=== PATIENT | female | born 1965 ===

== ENCOUNTER 2019-07-02 09:29 | Outpatient (CLI) | payer OTHER, SELFPAY ==
--- NOTE | ~2019-07-02 | MM_ITS ---
EXAMINATION: MM screening [place] BI w sejal HISTORY: Screening mammogram TECHNIQUE: Craniocaudal and mediolateral oblique 3-D tomosynthesis images were obtained and synthetic 2-D images were generated. CAD analysis was submitted and interpreted. COMPARISON: 03/31/2018, 11/15/2016, 11/18/2015 bilateral digital screening mammogram examinations BREAST PARENCHYMAL COMPOSITION: The breasts are heterogeneously dense, which may obscure small masses . FINDINGS: There is no evidence of suspicious mass, calcification, or architectural distortion to sugg est malignancy in either breast. There has been no suspicious interval change. IMPRESSION: 1. No mammographic evidence of malignancy. 2. Recommend routine screening mammography in one year. BI-RADS Category 1: Negative Reviewed, dictated and finalized at location A. TAL CONTENT MARKETING MANAGER
== END 2019-07-02 09:30 | disposition home or self-care (01) ==
LOC: ANHIMG 09:33
PROVIDERS: Visit Provider Student in an Organized Health Care Education/Training Program
DX: Z12.31 Encounter for screening mammogram for malignant neoplasm of breast (principal)
CPT/HCPCS: 77063; 77067

== ENCOUNTER 2019-07-23 02:46 | Day surgery (SDC) | payer OTHER, SELFPAY ==
[2019-07-19 13:18] VITALS: BMI 20.2
[2019-07-23 07:16] VITALS: BP 101/57; PULSE 86; RESP 18; TEMP 36.4; O2SAT 100
[2019-07-23] MEDS: LACTATED RINGERS 1,000 ML 150 ML IV CONT (07:22)
--- NOTE | 2019-07-23 08:44 | P.PNAN_ITS ---
Anes - Initial Pre Proc Eval Procedure: Operation Date: 07/23/19 08:30 Proposed Procedures p Screening Colonoscopy - Colin Lozoya MD Date/Time: 07/23/19 08:44 Surgeon: Colin Lozoya MD Pre Op Diagnosis: neoplasm screening Patient Data Age: 54 Gender: F Height: 5 ft 3 in Weight: 54.3 kg Last Vital Signs Temp 36.4 C L 07/23/19 07:16 Pulse 86 07/23/19 07:16 Resp 18 07/23/19 07:16 BP 101/57 L 07/23/19 07:16 Pulse Ox 100 07/23/19 07:16 Allergies Allergy/AdvReac Type Severity Reaction Status Date / Time No Known Allergies Allergy Mild Verified 07/23/19 07:14 Home Medications Medication Instructions Recorded Confirmed Type multivitamin 1 tablet PO DAILY 06/18/19 07/19/19 History omeprazole 20 mg PO DAILY 07/19/19 07/19/19 History Patient hx anesthesia problems: none Family hx anesthesia problems: none PMFSH Past Medical History Medical History Anemia Vaginal delivery Surgical History Surgical History History of appendectomy History of tubal ligation [place] teeth removed Social History Social History Smoking status: Never smoker Second hand tobacco smoke exposure: No Alcohol intake: never Anes - Eval Final PreProcedure Day of Procedure 07/23/19 08:44 Patient weight: normal Heart: regular rate and rhythm Lungs: clear to auscultation Airway: Mallampati scale class II Neurological: alert and oriented Last oral intake: >/= 8 hours Emergent: no Anesthetic plan: proceed Anesthesia type and monitoring: general GIVS and standard monitoring Informed Consent: The patient's anesthetic plan and its attendant risks and benefits were discussed with the patient/family/POA. Questions were solicited and answers provided to the satisfaction of the patient/family/POA.
--- NOTE | 2019-07-23 09:10 | WPDGICN ---
Assessment and Plan Additional Plan This is a 54-year-old female patient seen in evaluation at the request of Dr. Cookie Elmore. Patient presents for neoplasia screening. Her current weight appetite bowel movements are normal. She denies any abdominal pain. She denies any blood in her stools. Her bowel habits are normal. Family history is noncontributory. There is no known history of colon or Rectal disease. Current medications include omeprazole, multiple vitamins, and Estroven. She has no known drug allergies. Physical exam reveals patient to be alert. Vital Signs normal. HEENT exam unremarkable. Lungs are clear to auscultation and percussion. Heart is without murmur or extra sounds. Abdominal exam bowel sounds present soft nontender with no hepatosplenomegaly. Digital external rectal exam normal. Impression 1. Neoplasia screening. Plan is for screening colonoscopy. GI Consult Note Consult date/time: 07/23/19 09:10 HPI: Adelina Page is a 54 year old female [facility]LY [facility] Past Medical History Medical History Anemia Vaginal delivery Surgical History Surgical History History of appendectomy History of tubal ligation [place] teeth removed Social History Social History Smoking status: Never smoker Second hand tobacco smoke exposure: No Alcohol intake: never Meds Home Medications and Allergies Home Medications Medication Instructions Recorded Confirmed Type multivitamin 1 tablet PO DAILY 06/18/19 07/19/19 History omeprazole 20 mg PO DAILY 07/19/19 07/19/19 History Allergies Allergy/AdvReac Type Severity Reaction Status Date / Time No Known Allergies Allergy Mild Verified 07/23/19 07:14 Vital Signs Vital Signs - 24 hr 07/23/19 07:16 Temperature 36.4 C L Pulse Rate 86 Respiratory Rate 18 Blood Pressure 101/57 L Pulse Oximetry 100
[2019-07-23] MEDS: SIMETHICONE ORAL SUSPENSION 20 MG/0.3 ML 30 ML BOTTLE 0.6 ML IRRIGATION (09:16)
[2019-07-23 09:25] VITALS: BP 89/49; PULSE 96; RESP 28; O2SAT 97
[2019-07-23 09:35] VITALS: BP 90/51; PULSE 90; RESP 24; O2SAT 97
[2019-07-23 09:45] VITALS: BP 93/53; PULSE 85; RESP 24; O2SAT 97
== END 2019-07-23 10:10 | disposition home or self-care (01) ==
PROVIDERS: PCP Student in an Organized Health Care Education/Training Program; Visit Provider Internal Medicine Gastroenterology
PROC: 0DJD8ZZ Inspection of Lower Intestinal Tract, Via Natural or Artificial Opening Endoscopic (ICD-10-PCS; CPT 45378; principal; 2019-07-23 08:30)
DX: Z12.11 Encounter for screening for malignant neoplasm of colon (principal); K64.8 Other hemorrhoids; D64.9 Anemia, unspecified
CPT/HCPCS: 45378; J2704; J7120

== ENCOUNTER 2020-07-21 09:31 | Outpatient (CLI) | payer OTHER, SELFPAY ==
--- NOTE | ~2020-07-21 | MM_ITS ---
EXAMINATION: MM screening [place] BI w sejal HISTORY: Screening TECHNIQUE: Craniocaudal and mediolateral oblique 3-D tomosynthesis images were obtained and synthetic 2-D images were generated. CAD analysis was submitted and interpreted. COMPARISON: Comparison to multiple prior studies sequentially, with oldest reviewed study dated 07/17. BREAST PARENCHYMAL COMPOSITION: The breasts are heterogeneously dense, which may obscure small masses . FINDINGS: There is no evidence of suspicious mass, calcification, or architectural distortion to sugg est malignancy in either breast. There has been no suspicious interval change. IMPRESSION: 1. No mammographic evidence of malignancy. 2. Recommend routine screening mammography in one year. BI-RADS Category 1: Negative Reviewed, dictated and finalized at location A. AL WORK INSTRUCTOR
== END 2020-07-21 09:32 | disposition home or self-care (01) ==
LOC: ANHIMG 09:32
PROVIDERS: PCP Student in an Organized Health Care Education/Training Program; Visit Provider Student in an Organized Health Care Education/Training Program
DX: Z12.31 Encounter for screening mammogram for malignant neoplasm of breast (principal)
CPT/HCPCS: 77063; 77067

== ENCOUNTER → 2022-01-30 12:41 | Outpatient (CLI) | payer OTHER, SELFPAY ==
--- NOTE | ~2022-01-30 | MM_ITS ---
EXAMINATION: MM screening [facility] BI w sejal HISTORY: Screening mammogram TECHNIQUE: Craniocaudal and mediolateral oblique 3-D tomosynthesis images were obtained and synthetic 2-D images were generated. CAD analysis was submitted and interpreted. COMPARISON: 07/21/2020, 07/02/2019, 03/31/2018 BREAST PARENCHYMAL COMPOSITION: The breasts are heterogeneously dense, which may obscure small masses . FINDINGS: There is no suspicious mass, calcification, or architectural distortion to suggest malignan cy in either breast. There has been no suspicious interval change. IMPRESSION: 1. No mammographic evidence of malignancy. 2. Recommend routine screening mammography in one year. BI-RADS Category 1: Negative Reviewed, dictated and finalized at location A.
== END ==
PROVIDERS: PCP Internal Medicine; Visit Provider Student in an Organized Health Care Education/Training Program
DX: Z12.31 Encounter for screening mammogram for malignant neoplasm of breast (principal)
CPT/HCPCS: 77063; 77067

== ENCOUNTER 2024-07-20 13:23 | Outpatient (CLI) | payer OTHER, SELFPAY ==
--- NOTE | ~2024-07-20 | MM_ITS ---
EXAMINATION: MM screening [place] BI w sejal HISTORY: Screening TECHNIQUE: Craniocaudal and mediolateral oblique 3-D tomosynthesis images were obtained and synthetic 2-D images were generated. CAD analysis was submitted and interpreted. COMPARISON: Comparison to multiple prior studies sequentially, with oldest reviewed study dated 01/2016. BREAST PARENCHYMAL COMPOSITION: Dense: The breasts are extremely dense, which lowers the sensitivity of mammography. FINDINGS: There is no evidence of suspicious mass, calcification, or architectural distortion to sugg est malignancy in either breast. There has been no suspicious interval change. IMPRESSION: 1. No mammographic evidence of malignancy. 2. Recommend routine screening mammography in one year. BI-RADS Category 1: Negative Reviewed, dictated and finalized at location B. RNAL COMMUNICATIONS WRITER
--- OUTSIDE RECORDS SUMMARY | 2024-07-20 13:30 | XMS_ITS | Clinical Summary ---
Author Organization [facility] Office Center Address [address] [place] [address] Care Team Providers Care Biometrics Specialist Name Role Phone Best Campoverde MD Primary Care Provider [phone] Allergies No known active allergies Medications Lactobacillus acidophilus (Probiotic) 10 billion cell capsule Take 1 capsule by mouth daily Active dpgtsgdn-kswj-jk n-folic acid 18-0.4 mg tablet Take 1 tablet by mouth daily Active omeprazole (PriLOSEC) 20 mg capsule Take 1 capsule (20 mg total) by mouth daily 90 capsule 2 10/10/2021 Active meloxicam (MOBIC) 15 mg tablet TAKE 1 TABLET (15 MG TOTAL) BY MOUTH DAILY. 30 tablet 03/09/2024 03/09/20 25 Active oxyBUTYnin XL (DITROPAN-XL) 5 mg 24 hr tablet Take 1 tablet (5 mg total) by mouth daily 02/11/2024 Active Active Problems Problem Noted Date Diagnosed Date Right hip pain 02/09/2024 Assessment & Plan (2024 12:27 PM CDT): Patient with persistent right hip pain. Meloxicam did not help. The x-ray showed mild arthritis. Patient did not start physical therapy. Patient does not want physical therapy. Will make a referral to see orthopedic doctor for further evaluation Assessment & Plan (02/09/2024 11:09 AM CDT): Patient with chronic right hip and right lower back pain for the last year. Will obtain x-ray of the right hip and start her on meloxicam 15 mg daily. Will start her on physical therapy. Will evaluate her again in 1 month. BMI 21.0-21.9, adult 10/17/2022 Other headache syndrome 10/17/2022 Assessment & Plan (11/08/2022 9:21 AM CDT): Resolved Assessment & Plan (10/17/2022 2:50 PM CDT): Patient with new onset headache. The pain is throbbing and moderate in intensity and persistent. Tylenol and Aleve help slightly. Patient does not have previous history of headache. Will obtain MRI of the brain for further evaluation. Patient was advised to go to the emergency room for worsened headache. Numbness in feet 10/03/2021 Assessment & Plan (02/09/2024 11:09 AM CDT): Resolved and patient stopped Lyrica Assessment & Plan (11/08/2022 9:21 AM CDT): Controlled on Lyrica Assessment & Plan (12/26/2021 3:16 PM CDT): Controlled on Lyrica 50 mg q.h.s. Assessment & Plan (11/14/2021 3:47 PM CDT): Blood work was essentially unremarkable. Nerve conduction study was not done yet. Patient continues to be symptomatic. Will start her on Lyrica 50 mg b.i.d.. Side effects were explained. Will evaluate her in few weeks. Assessment & Plan (10/03/2021 4:22 PM CDT): The patient complains of numbness in her feet for about 1 year. She has no other complaints. Will obtain some blood work and will obtain nerve conduction study of both lower extremities for further evaluation and make recommendations after that. Right elbow pain 10/03/2021 Assessment & Plan (11/14/2021 3:47 PM CDT): Pain is resolved Assessment & Plan (10/03/2021 4:22 PM CDT): Patient will apply ice to the area. She was advised to wear elbow brace. She will apply Voltaren gel twice daily as needed. She will call us if she has persistent symptoms. Chronic pain of left knee 04/11/2020 Assessment & Plan (04/11/2020 1:48 PM PRESIDENT CEO & FOUNDER): Patient with osteoarthritis of left knee. We will start her on Voltaren gel 3 times daily p.r.n.. We discussed steroid injection and she was to proceed with that. She received steroid injection under aseptic technique. Patient will call us for persistent symptoms. Acute cystitis 09/17/2019 Assessment & Plan (09/17/2019 12:00 PM CDT): The patient has UTI. We will start her on Bactrim ds b.i.d. for 7 days and she was advised to increase the fluid intake. She will call for persistent symptoms GERD (gastroesophageal reflux disease) Assessment & Plan (11/14/2021 3:46 PM CDT): Controlled on Prilosec Assessment & Plan (10/03/2021 4:21 PM CDT): Controlled on Prilosec Assessment & Plan (04/11/2020 1:48 PM PRESIDENT CEO & FOUNDER): Controlled on Prilosec Assessment & Plan (09/17/2019 12:00 PM CDT): Controlled on Prilosec Immunizations Immunization Administration Dates Next Due Influenza, Quadrivalent, Ernestine l Culture-based MDCK, Preservative Free, Antibiotic Free, Intramuscular 04/24/2022 Influenza, Quadrivalent, Spl it, Preservative Free, Intramuscular 04/11/2020 Influenza, Trivalent, Cell Culture-based MDCK, Preservative Free, Antibiotic Free, Intramuscular 04/24/2022 Influenza, Unspecified 2024(Deferred: Kennedi ent Refused) Pneumococcal Polysaccharide PPV23 04/10/2018 Tdap 08/07/2015 ZOSTER Recombinant 12/11/2023,08/16/2023 Medical History Medical History Date Comments GERD (gastroesophageal reflux disease) Family History Medical History Relation Name Comments No Known Problems Father Heart attack Mother Heart disease Mother Hypertension Mother Relation Name Status Comments Father Alive Mother Social History Tobacco Use Types Packs/Day Years Used Date Smoking Tobacco: Never Smokeless Tobacco: Never Alcohol Use Standard Drinks/Week Comments Not Currently 0 (1 standard drink = 0.6 oz pur e alcohol) AUDIT-C Answer Date Recorded Q1: How often do you have a drink containing alcohol? Never 2024 Q2: How many drinks containi ng alcohol do you have on a typical day when you are drinking? Patient does not drink Q3: How often do you have si x or more drinks on one occasion? Never 2024 PHQ-2 Answer Date Recorded PHQ-2 Total Score (If total score is 3 or more points, staff should administer the PHQ-9) 0 2024 Personal Safety Answer Date Recorded Getting School Help Needed Not on file 05/18 Comments No Sex and Gender Information Value Date Recorded Sex Assigned at Not on file Legal Sex Female 9:34 AM PRESIDENT CEO & FOUNDER Gender Identity Not on file Sexual Orientation Not on file Obstetrics History Last Filed Vital Signs Vital Sign Reading Time Taken Comments Blood Pressure 92/60 2024 10:38 AM CDT Pulse 72 2024 10:38 AM CDT Temperature 36.5 C (97.7 F) 2024 10:38 AM CDT Respiratory Rate 16 2024 10:38 AM CDT Oxygen Saturation 99% 2024 10:38 AM CDT Inhaled Oxygen Concentration - - Weight 52.6 kg (116 lb) 2024 10:38 AM CDT Height 160 cm (5' 3 ) 2024 10:38 AM CDT Body Mass Index 20.55 2024 10:38 AM CDT Plan of Treatment Health Maintenance Due Date Last Done Comments Cervical Cancer Screening 1967 Hepatitis C Screening 1967 Hepatitis B Screening 1985 Regular Well Visit/Exam 18-64 1985 Breast Cancer Screening-Mammogram 01/30/2023 01/30/2022, 07/02/2019, 06/02/2018 Covid-19 Vaccine ( season) 2024 05/05/2021, 09/11/2020, 08/21/2020 Influenza Vaccine (#1) 2024 2, 04/24/2022, 04/11/2020 Depression Screening 2025 2024, 02/09/2024, 11/08/2022, Additional history exists DTaP/Tdap/Td Vaccine (2 - Td or Tdap) 08/06/2025 08/07/2015 Colon Cancer Screening-Colonoscopy 07/23/2029 07/23/2019 Pneumococcal vaccine <65 Aged Out 04/10/2018 No longer eligible based on patient's age to complete this topic Colon Cancer Screening-CT Colonography Discontinued 07/23/2019 Colon Cancer Screening-DNA Stool Discontinued 07/23/2019 Colon Cancer Screening-FIT Discontinued 07/23/2019 Colon Cancer Screening-Sigmoidoscopy Discontinued 07/23/2019 Zoster Vaccine Completed 12/11/2023, 08/16/2023 Procedures Procedure Name Priority Date/Time Associated Diagnosis Comments SCREENING MAMMOGRAM Schedule Routine, Read Routine (OP Routine) 01/30/2022 COLONOSCOPY Routine 07/23/2019 from Last 3 Months or Most Recently Relevant to Health Maintenance Results * Screening Mammogram (01/30/2022) Anatomical Region Laterality Modality Breast N/A Mammography Narrative 01/30/2022 normal us Historical Provider IMG MAMMO PROCEDURES Nidia l Result * Colonoscopy (07/23/2019) Anatomical Region Laterality Modality Other us Historical Provider ENDOSCOPY PROCEDURES Nidia l Result from Last 3 Months or Most Recently Relevant to Health Maintenance Insurance [facility]PPO Address: [place] [id number] [facility]/PPO Address[place] [id number] Care Teams Biometrics Specialist Relationship Specialty Start Date End Date Best Campoverde MD [facility] [place] [address] PCP - General Internal Medicine 09/17/19
--- OUTSIDE RECORDS SUMMARY | 2024-07-20 13:30 | XMS_ITS | Referral Summary ---
Author Organization [facility] at the [facility] Address [address] [place] [address] Care Team Providers Care Pcb Design Engineer Name Role Phone Best Campoverde MD Primary Care Provider [phone] Allergies No known active allergies Medications Lactobacillus acidophilus (Probiotic) 10 billion cell capsule Take 1 capsule by mouth daily Active poklqlgr-ckma-nt n-folic acid 18-0.4 mg tablet Take 1 [...] 04/11/2020 Assessment & Plan (04/11/2020 1:48 PM SWEETBREAD TRIMMER): Patient with osteoarthritis of left knee. We [...] Prilosec Assessment & Plan (04/11/2020 1:48 PM SWEETBREAD TRIMMER): Controlled on Prilosec Assessment & Plan (09/17/2019 [...] PPV23 04/10/2018 Tdap 08/07/2015 ZOSTER Recombinant 12/11/2023,08/16/2023 Social History Tobacco Use Types Packs/Day Years [...] on file Legal Sex Female 9:34 AM SWEETBREAD TRIMMER Gender Identity Not on file Sexual Orientation Not on file Last Filed Vital Signs Vital Sign Reading [...] 2024 10:38 AM CDT Plan of Treatment Not on file Procedures Procedure Name Priority Date/Time Associated Diagnosis Comments SCREENING MAMMOGRAM Schedule Routine, Read Routine (OP Routine) 01/30/2022 COLONOSCOPY Routine 07/23/2019 from Last 3 Months or Most Recently Relevant to Health Maintenance Results * Screening Mammogram (01/30/2022) Anatomical Region Laterality Modality Breast N/A Mammography Narrative 01/30/2022 normal us Historical Provider MD IMG MAMMO PROCEDURES Nidia l Result * Colonoscopy (07/23/2019) Anatomical Region Laterality Modality Other us Historical Provider ENDOSCOPY PROCEDURES Nidia l Result from Last 3 Months or Most Recently Relevant to Health Maintenance Insurance [facility] CHO[facility] PL[facility] Care Teams Pcb Design Engineer Relationship Specialty Start Date End Date Best Campoverde MD [address] [facility] [address] [address] PCP - General Internal Medicine 09/17/19
--- OUTSIDE RECORDS SUMMARY | 2024-07-20 13:30 | XMS_ITS | Encounter Summary ---
Author Organization 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 Historical Provider Final Res ult * SCAN - LABS (10/20/2015 12:00 AM CDT) Narrative 10/20/2015 12:00 AM CDT Ordered by an unspecified provider. Historical Provider Final Res ult documented in this encounter Visit Diagnoses Not on filedocumented in this encounter Care Teams Shredder Tender Relationship Specialty Start Date End Date Best Campoverde MD [address] [facility] [address] [address] PCP - General Internal Medicine 09/17/19 documented as of this encounter
== END 2024-07-20 13:24 | disposition home or self-care (01) ==
PROVIDERS: PCP Internal Medicine; Visit Provider Nurse Practitioner Family
DX: Z12.31 Encounter for screening mammogram for malignant neoplasm of breast (principal)
CPT/HCPCS: 77063; 77067